=== PATIENT | female | born 1990 | race Asian ===

== ENCOUNTER 2019-06-02 13:58 | Emergency (ER) | payer OTHER ==
[2019-06-02 14:25] VITALS: BP 118/83
--- NOTE | 2019-06-02 14:26 | ED Physician Documentation ---
History of Present Illness - Stated complaint Stated Complaint: FEMALE - Additonal information Additional information: This is a 28-year-old female who presents with pain in her right ischial/gluteal region. She went snowboarding around a week ago and she fell backwards landing on her bottom. She had pain on her ischial region near her groin where she impacted, and afterwards she was able to walk down the mountain. Since that time she has had some gradual improvement in her pain but she still has pain when she stands on one leg or when she lifts her left leg up and flexes her hip. She has not tried any ibuprofen or Tylenol for her pain. Because the pain has persisted for a week she wanted to get checked out Review of Systems Constitutional: denies: Fever Musculoskeletal: reports: Extremity pain Neurologic: denies: Focal weakness PD ED PE NORMAL - Vitals Vital signs reviewed: Yes - General General: Alert and oriented X 3, No acute distress - HEENT HEENT: Atraumatic - Cardiac Cardiac: Strong equal pulses - Respiratory Respiratory: No respiratory distress - Abdomen Abdomen: Non distended - Derm Derm: Warm and dry - Extremities Extremities: Other (Exam performed with LEONCIO Jefferson as office automation technician. Patient has some tenderness in the anterior medial gluteal region made over the ischial prominence. There is no bruising, no overlying skin changes. She has 5 out of 5 strength with ankle flexion In extension, 5 out of 5 strength with knee extension and flexion, and 5-5 strength with hip flexion and extension, although hip flexion on the left causes her some pain. She has a normal gait without any obvious pain.) - Neuro Neuro: Alert and oriented X 3 - Psych Psych: Normal mood, Normal affect Departure - Departure Disposition: 01 Home, Self Care Clinical Impression: Ischial pain, left Condition: Good Instructions: ED Strain Muscle Ext Follow-Up: ABA MUNOZ DO [Primary Care Provider] - Comments: I think you likely strained a muscle in your pelvis/left leg, you may have also had a contusion of your pelvic bones. Try taking ibuprofen 600 mg every 6 hours for the next 3 to 4 days, and then you can reduce the frequency to as needed. You may also combine this with Tylenol 650 mg every 6 hours. Avoid straining or strenuous exercise until you are feeling better. Please make a follow-up appointment with your primary care provider. If you are developing new or worsening symptoms such as severely increasing pain, rash, or weakness in your leg, return to the emergency department.
== END 2019-06-02 14:50 | disposition home or self-care (01) ==
LOC: ED 13:58
DX: M25.552 Pain in left hip (principal)
CPT/HCPCS: 99282; 99284